=== PATIENT | female | born 1965 | race American Indian/Alaskan Native ===

== ENCOUNTER 2017-02-23 20:53 | Emergency (ER) | payer SELFPAY ==
[2017-02-23] MEDS ORDERED: NACL 0.9% 1000 ML 1,000 ML IV ONE (21:00)
[2017-02-23] MEDS ORDERED: NARCAN 2 MG/2 ML IV ONE (21:00)
--- NOTE | 2017-02-23 21:02 | Emergency Department Report ---
HPI - General Time Seen by Provider: 02/23/17 20:59 - HPI HPI: This is a 51-year-old Afro-[place]i female who presents to the emergency department by EMS after she was found altered and unresponsive on a [employer] bus. The patient was seen getting onto the bus but then after riding the bus for about 40 minutes she was noticed to be sedated and/or altered and unresponsive. EMS gave her 1 mg of intranasal Narcan and she woke up and became more responsive but then once again became sleepy and sedated. Patient is a poor historian secondary to her current medical condition. ED Past Medical Hx - Medications Home Medications: Home Medications Medication Instructions Recorded Confirmed Last Taken Type Unobtainable 02/23/17 02/23/17 Unknown History ED Review of Systems ROS: Stated complaint: OVERDOSE Other details as noted in HPI Comment: Unobtainable due to pts medical conditions Physical Exam - Physical Exam Physical Exam: GENERAL: Patient appears altered or intoxicated. She is arousable. Patient appears disheveled and smells of urine. HEENT: Normocephalic. Atraumatic. Patient has moist mucous membranes. Pupils equal reactive to light bilaterally. NECK: Supple. Trachea is midline. CHEST/LUNGS: Clear to auscultation. There is no respiratory distress noted. HEART/CARDIOVASCULAR: Regular. There is no tachycardia. There is no gallop rub or murmur. ABDOMEN: Abdomen is soft, nontender. Patient has normal bowel sounds. There is no abdominal distention. SKIN: Skin is warm and dry. NEURO: Patient appears altered and/or intoxicated. She is mostly sleeping but is arousable to painful stimuli. If not consistently stimulated, the patient will discontinue sleeping. MUSCULOSKELETAL: There is no tenderness or deformity. There is no limitation range of motion. There is no evidence of acute injury. Cap refill less than 2 seconds. ED Course - Reevaluation(s) Reevaluation #1: The patient is now more awake and alert. She admits to heavy alcohol use. We will continue to monitor. 02/23/17 22:27 ED Medical Decision Making - Lab Data Result diagrams: 02/23/17 21:10 02/23/17 21:10 - EKG Data -: EKG Interpreted by Me EKG shows normal: sinus rhythm, axis, intervals, QRS complexes, ST-T waves (Non- specific) Rate: normal - EKG Data When compared to previous EKG there are: previous EKG unavailable Interpretation: other (Non-specific t waves) - Radiology Data Radiology results: image reviewed interpreted by me: Chest x-ray did not show any acute process. Heart is normal shape and size. No effusions. No pneumothorax. No signs of pneumonia seen. - Medical Decision Making This is a 51-year-old female presents to the emergency department after altered mental status and sedation on a [employer] bus. Patient's labs are mostly unremarkable except for anemia with a hemoglobin of 7.4 and an alcohol level of 0.31. The alcohol level is most likely the patient's cause for altered mental status and sedation. Later on, when the patient was more awake and alert she was able to tell me that she has sickle cell anemia and his hemoglobin level may be consistent with her baseline. There is been no bleeding or any signs of trauma. Patient was given IV fluid resuscitation and a banana bag. She was reevaluated multiple times overnight and around 5 AM I reassessed her and she was easily arousable. At this point she was AAO 3. She was able to give me medical history and was cognizant. Patient admitted to drinking heavily the previous night but there was no intent to do self-harm and she denies being alcoholic. The patient remained in the emergency department until a few hours after her 0.16 alcohol level to the point where she would be legally sober and then was discharged home. She was given referrals for primary care. She has been encouraged to return to the emergency department with any worsening of her symptoms or any acute distress. - Differential Diagnosis alcohol intoxication, polysubstance abuse, TIA, hypoglycemia Critical Care Time: No Critical care attestation.: If time is entered above; I have spent that time in minutes in the direct care of this critically ill patient, excluding procedure time. ED Disposition Clinical Impression: Alcohol intoxication Qualifiers: Complication of substance-induced condition: uncomplicated Qualified Code(s): F10.120 - Alcohol abuse with intoxication, uncomplicated Anemia Qualifiers: Anemia type: unspecified type Qualified Code(s): D64.9 - Anemia, unspecified Sickle cell anemia Qualifiers: Sickle-cell associated disorders: without crisis Qualified Code(s): D57.1 - Sickle-cell disease without crisis Disposition: DISCHARGED TO HOME OR SELFCARE Is pt being admited?: No Condition: Stable Instructions: Alcohol Intoxication (ED), Abuse of Alcohol (ED), Anemia (ED) Additional Instructions: Please follow-up with a primary care doctor in the next few days. Return to the emergency department with any worsening of your symptoms or any acute distress. It is recommended that you try and stay away from any further alcohol consumption. Referrals: PRIMARY CARE, [Primary Care Provider] - 3-5 Days BLANCA LEE MD [Staff Physician] - 3-5 Days KRISTEN PAIZ MD [Staff Physician] - 3-5 Days [facility] [Outside] - 3-5 Days Time of Disposition: 06:06
[2017-02-23 21:33] LABS: Urine Drugs of Abuse Note Disclamer
[2017-02-23 21:33] LABS: Hematocrit 23.5 % (30.3-42.9); Hemoglobin 7.4 gm/dl (10.1-14.3); Mean Corpuscular HGB Conc 32 % (30-34); Platelet Count 253 K/mm3 (140-440); Red Blood Count 3.72 M/mm3 (3.65-5.03); White Blood Count 3.9 K/mm3 (4.5-11.0)
[2017-02-23 21:35] LABS: Mean Corpuscular Hemoglobin 20 pg (28-32); Mean Corpuscular Volume 63 fl (79-97); Red Cell Distribution Width 22.9 % (13.2-15.2)
[2017-02-23 21:38] LABS: Bilirubin,Urine NEG (Negative); Blood,Urine SM (Negative); Ketones,Urine NEG (Negative); Leukocyte Esterase,Urine NEG (Negative); Nitrite,Urine NEG (Negative); Protein,Urine <15 mg/dL mg/dL (Negative); Urobilinogen,Urine < 2.0 mg/dL (<2.0); WBC,Urine < 1.0 /HPF (0.0-6.0)
[2017-02-23 21:54] LABS: Alanine Aminotransferase 14 units/L (7-56); Albumin 4.2 g/dL (3.9-5); Albumin/Globulin Ratio 1.3 %; Alkaline Phosphatase 71 units/L (35-129); Anion Gap 19 mmol/L; BUN/Creatinine Ratio 8.33; Bilirubin,Total < 0.2 mg/dL (0.1-1.2); Blood Urea Nitrogen 5 mg/dL (7-17); Calcium 8.6 mg/dL (8.4-10.2); Carbon Dioxide 24 mmol/L (22-30); Chloride 103.9 mmol/L (98-107); Creatine Kinase 277 units/L (30-135); Glucose 89 mg/dL (65-100); Potassium 3.8 mmol/L (3.6-5.0); Sodium 143 mmol/L (137-145); Total Protein 7.5 g/dL (6.3-8.2)
--- NOTE | 2017-02-23 22:04 | Admit Criteria Form ---
Admission Criteria Documentation: MENTAL STATUS CHANGE Clinical Indications for Inpatient Care (Place 'X' for any and all applicable criteria): Ongoing inpatient care may be needed for ANY ONE of the following(1)(2)(3)(5)(6) : [X ]I. Suspected serious etiology (eg, medical disorder, HEARTH FEEDER event) of mental status change [ ]II. Danger to self or others not manageable at lower level of care [ ]III. Grave disability (eg, inability to perform self care necessary at lower level of care) [ ]IV. Agitation or inappropriate behavior interfering with care for primary condition (eg, attempting to discontinue lines or drains prematurely, unable to cooperate with respiratory care) [ ]V. Delirium [A] [D][E] as described by ANY ONE of the following(26): [ ]a) Delirium due to alcohol or sedative [F] withdrawal [ ]b) Delirium of uncertain etiology that has not responded to appropriate empiric treatment [ ]c) Delirium that prevents performance of a life-sustaining function (eg, feeding or hydrating oneself) [ ]. General contraindications and/or Inappropriate clinical situations for Observational Care in patients with Mental Status Change, when ANY ONE of the following is required: [ ]a) Prediction of prolongation of LOS based on ANY ONE of the following may be considered as a contraindication for observational care 2, 3, 4, 5, 6, 7, 8, 9, 10, 11 [ ]i) Age > 65 yrs. [ ]ii) Patient arriving by ambulance [ ]iii) Patient with high acuity [ ]iv) Patient requiring vital sign monitoring [ ]v) Patient on IV medication [ ]b) Systolic blood pressures 180mmHg 3,12 [ ]c) Patient with altered mental status including delirium and other alteration of consciousness, (3) [ ]d) Patient whose discharge disposition will be to a longterm home or rehabilitation home should not be managed in Emergency Department Observation Unit. CMS rule requires 3 days hospital stay before such placement.3,13 [ ]e) Patient with failure to thrive due to broad array of etiologies 3,16,17 [ ]f) Inability to ambulate 3,14 Extended stay beyond goal length of stay for the primary condition may be needed until ALL of the following are present(3)(5): [ ]a) Underlying medical etiology of mental status change is absent, or has been established and adequately treated [ ]b) Danger to self or others is absent or manageable at lower level of care. [ ]c) Behavior crisis management, including physical or chemical restraints, is not required or available at lower level of car [ ]d) Substance or alcohol withdrawal is absent or manageable at lower level of care. [ ]e) Behavioral symptoms (eg, agitation, somnolence, inappropriate behavior) are absent, or are manageable at lower level of care. The original [facility] content created by [facility] [place] has been revised. The portions of the content which have been revised are identified through the use of italic text or in bold, and [facility] has neither reviewed nor approved the modified material. All other unmodified content is copyright [facility]. Please see references footnoted in the original [facility] edition 2016
[2017-02-23 22:12] LABS: Basophils % (Manual) 0 % (0.0-1.8); Blastocytes % (Manual) 0 %; Eosinophils % (Manual) 0 % (0.0-4.3)
[2017-02-23 22:13] LABS: Anisocytosis 1+; Hypochromasia 2+; Target Cells 1+
[2017-02-23 22:14] LABS: Diff Status Complete; Ovalocytes Few
[2017-02-23] MEDS ORDERED: VITAMIN B-1 100 MG, FOLVITE 1 MG, INFUVITE 10 ML in NACL 0.9% 1000 ML 1,000 ML IV ONE (22:27)
[2017-02-24 08:27] VITALS: BP 120/72
--- NOTE | 2017-02-24 08:49 | XRay Report ---
CHEST ONE VIEW INDICATION: Altered mental status. COMPARISON: None similar at this institution. FINDINGS: Portable, single, frontal chest radiograph demonstrates top normal heart size. Normal mediastinal and hilar contours. Clear lungs. Intact bones. Extrinsic clothing artifacts. CONCLUSION: No acute disease in the chest. Thank you for the opportunity to participate in this patient's care.
== END 2017-02-24 08:27 | disposition home or self-care (01) ==
LOC: ED 20:53
DX: F10.120 Alcohol abuse with intoxication, uncomplicated (principal); D57.1 Sickle-cell disease without crisis
CPT/HCPCS: 36415; 71010; 80053; 80307; 81001; 82140; 82550; 84484; 84703; 85007; 85025; 93005; 93010; 96361; 96365; 96375; 99285; G0480; J2310; J3411; J7030; 80320